=== PATIENT | male | born 1970 | race African-American/Black ===

== ENCOUNTER 2020-01-07 08:01 | Inpatient (IN) | payer OTHER ==
[~2020-01-07] VITALS: Ht 149.9 cm; Wt 55.3 kg
--- NOTE | ~2020-01-07 | EMS ---
[address] [address] EMS Patient Care Report Name: SANDIE GOMEZ Room #: REG JULIEN Corbett#: [id number] Admission: 01/07/20 Attend Phys: Discharge: Date of : 70 Report #: [id number] THIS REPORT FOR: //name// Report Transmitted: 01/07/2020 08:49 EMS Care Summary [place], [place]/[facility] Incident [id number] @ 01/07/2020 07:25 Incident Location [address] [place], [place] [address]A Patient SANDIE GOMEZ Male, 49 Years 1970 Patient Address [address] [place] [id number] Patient History Gastro-Esophageal Reflux Disease (GERD),Depression,Paraplegia,Colostomy, Patient Allergies No known allergies, Patient Medications Protonix, Oxybutynin, Tylenol, Aspirin, [place], Loperamide, Ascorbic Acid, Chief Complaint FEVER, REFUED WOUND CARE YESTERDAY Disposition Transported No Lights/[place] Dispatch Reason Sick Person Transported To [facility] Narrative PT FOUND LYING IN BED. STAFF STATES THAT PT REFUSED WOUND CARE FOR HIS STAGE 4 WOUNDS YESTERDAY AND THAT THIS AM HE IS RUNNING A TEMP OF 101. LEVEL 1 MASK PLACED ON PT. PT TRANSPORTED WITHOUT INCIDENT. [address] [address] EMS Patient Care Report Name: SANDIE GOMEZ Room #: REG ER Chelle#: [id number] Admission: 01/07/20 Attend Phys: Discharge: Date of : 70 Report #: [id number] Initial Vitals @07:45P: 116,R: 18,BP: 112/72,Pain: 0/10,GCS: 15,SpO2: 97,Revised Trauma: 12, Assessments @07:35MENTAL:No Abnormalities,SKIN:Hot,HEENT:Head/Face: No Abnormalities,Eyes: No Abnormalities,Neck/Airway: No Abnormalities,LUNG SOUNDS:ABDOMEN:PELVIS//GI:EXTREMITIES:PULSE:NEURO:No Abnormalities, Impression Fever Procedures @07:35ALS AssessmentResponse: UnchangedSucceeded Timeline 07:22,Call Received 07:22,Dispatch Notified 07:25,Dispatched 07:29,En Route 07:33,On Scene 07:35,At Patient 07:35,ALS Assessment,Response: UnchangedSucceeded, 07:45,BP: 112/72 M,PULSE: 116,RR: 18 R,SPO2: 97 Ox,ETCO2: ,BG: ,PAIN: 0,GCS: 15, 07:46,Depart Scene 07:57,At Destination 08:22,Call Closed Disclaimer v1.1 Copyright 2020 [employer] This EMS Care Summary contains data elements from the applicable legal record (which may be displayed differently). It is designed to provide pertinent information for the following purposes: continuity of care, clinical quality, and state data reporting. The complete legal record is available to ED staff and administrators of the receiving hospital in [employer]'s Patient Tracker. All data is provided "as is."
--- NOTE | ~2020-01-07 | EMS ---
[address] [address] EMS Patient Care Report Name: SANDIE GOMEZ Room #: REG JULIEN Corbett#: [id number] Admission: 01/07/20 Attend Phys: Discharge: Date of : 70 Report #: [id number] THIS REPORT FOR: //name// Report Transmitted: 01/07/2020 09:30 EMS Care Summary [place], [place]/[facility] Incident [id number] @ 01/07/2020 07:25 Incident Location [address] [place], [place] [address] Patient SANDIE GOMEZ Male, 49 Years 1970 Patient Address [address] [place] [address] Patient History Gastro-Esophageal Reflux Disease (GERD),Depression,Paraplegia,Colostomy, Patient Allergies No known allergies, Patient Medications Protonix, Oxybutynin, Tylenol, Aspirin, [place], Loperamide, Ascorbic Acid, Chief Complaint FEVER, REFUED WOUND CARE YESTERDAY Disposition Transported No Lights/[place] Dispatch Reason Sick Person Transported To [facility] Narrative PT FOUND LYING IN BED. STAFF STATES THAT PT REFUSED WOUND CARE FOR HIS STAGE 4 WOUNDS YESTERDAY AND THAT THIS AM HE IS RUNNING A TEMP OF 101. LEVEL 1 MASK PLACED ON PT. PT TRANSPORTED WITHOUT INCIDENT. [address] [address] EMS Patient Care Report Name: SANDIE GOMEZ Room #: REG ER Chelle#: [id number] Admission: 01/07/20 Attend Phys: Discharge: Date of : 70 Report #: [id number] Initial Vitals @07:45P: 116,R: 18,BP: 112/72,Pain: 0/10,GCS: 15,SpO2: 97,Revised Trauma: 12, Assessments @07:35MENTAL:No Abnormalities,SKIN:Hot,HEENT:Head/Face: No Abnormalities,Eyes: No Abnormalities,Neck/Airway: No Abnormalities,LUNG SOUNDS:ABDOMEN:PELVIS//GI:EXTREMITIES:PULSE:NEURO:No Abnormalities, Impression Fever Procedures @07:35ALS AssessmentResponse: UnchangedSucceeded Timeline 07:22,Call Received 07:22,Dispatch Notified 07:25,Dispatched 07:29,En Route 07:33,On Scene 07:35,At Patient 07:35,ALS Assessment,Response: UnchangedSucceeded, 07:45,BP: 112/72 M,PULSE: 116,RR: 18 R,SPO2: 97 Ox,ETCO2: ,BG: ,PAIN: 0,GCS: 15, 07:46,Depart Scene 07:57,At Destination 08:22,Call Closed Disclaimer v1.1 Copyright 2020 [employer] This EMS Care Summary contains data elements from the applicable legal record (which may be displayed differently). It is designed to provide pertinent information for the following purposes: continuity of care, clinical quality, and state data reporting. The complete legal record is available to ED staff and administrators of the receiving hospital in [employer]'s Patient Tracker. All data is provided "as is."
[~2020-01-07 08:01] MED LIST: AMOXICILLIN 50500 MG PO; BACTRIM DS TAB1 EACH PO; BETADINE1 EACH TOP; CARDIZEM30 MG PO; GAS RELIEF80 MG PO; JUVEN PACKET1 EACH PO; NOHOMEMEDICATIONS; PEPCID20 MG PO; PIPERACIL-TA3.375 GM IVPB; PROSTAT; TYLENOL325 MG PO; VITAMINC500 PO; ZINC10 MG PO
[2020-01-07 08:02] VITALS: BP 106/71
[2020-01-07] MEDS ORDERED: ASA81BEC PO (09:02)
[2020-01-07] MEDS ORDERED: LORCET 5-325 M1 EACH PO (09:02)
[2020-01-07] MEDS ORDERED: LOPERAMIDE2 MG PO (09:03)
[2020-01-07] MEDS ORDERED: SUPER THERAVIT1 EACH PO (09:03)
[2020-01-07] MEDS ORDERED: PROTONIX40 M3 PO (09:04)
[2020-01-07] MEDS ORDERED: OXYBUTYNIN CHLO15 MG PO (09:04)
[2020-01-07] MEDS ORDERED: TYLENOL325 MG PO (09:04)
[2020-01-07 09:11] LABS: CALCIUM 9.4 mg/dL (8.5-10.1); CREATININE 1.2 mg/dL (0.7-1.3); POTASSIUM 3.4 mmol/L (3.5-5.1)
[2020-01-07 09:17] LABS: ALBUMIN 2.1 g/dL (3.4-5.0); TOTAL BILIRUBIN 0.4 mg/dL (<0.1-1.0); TOTAL PROTEIN 9.3 g/dL (6.4-8.2)
[2020-01-07 09:50] LABS: ABSOLUTE NEUTROPHILS 15.9 thou/uL (1.4-8.2); BASOPHILS 0.4 % (0.0-2.0); EOSINOPHILS 0.5 % (0.0-3.0); HEMATOCRIT 26.7 % (42.0-52.0); HEMOGLOBIN 8.4 gm/dL (14.0-18.0); LYMPHOCYTES 9.1 % (24.0-44.0); MCH 22.2 pg (26.0-34.0); MCHC 31.3 g/dL (28.0-37.0); MCV 71.1 fL (80.0-100.0); MONOCYTES 8.7 % (1.0-8.0); PLATELET COUNT 477 thou/uL (150-400); POLYS 81.3 % (36.0-66.0); RBC 3.76 mil/uL (4.50-6.00); RDW 19.6 % (10.5-14.5); WBC 19.5 thou/uL (4.0-11.0)
[2020-01-07 10:33] VITALS: BP 108/84
[2020-01-07 11:04] VITALS: BP 92/64
[2020-01-07 11:23] LABS: ANISOCYTOSIS 1+; MICROCYTES 1+; PLATELET ESTIMATE NORMAL
[2020-01-07 11:54] VITALS: BP 95/68
[2020-01-07 16:16] VITALS: BP 99/68
[2020-01-07 19:13] VITALS: BP 94/64
[2020-01-08 03:59] VITALS: BP 97/67
[2020-01-08 06:19] LABS: CALCIUM 8.5 mg/dL (8.5-10.1); CREATININE 1.3 mg/dL (0.7-1.3); MAGNESIUM 1.6 mg/dL (1.8-2.4); POTASSIUM 3.8 mmol/L (3.5-5.1)
[2020-01-08 06:23] LABS: ABSOLUTE NEUTROPHILS 10.1 thou/uL (1.4-8.2); BASOPHILS 0.5 % (0.0-2.0); EOSINOPHILS 2.6 % (0.0-3.0); HEMOGLOBIN 7.7 gm/dL (14.0-18.0); LYMPHOCYTES 12.1 % (24.0-44.0); MCH 22.1 pg (26.0-34.0); MCHC 30.7 g/dL (28.0-37.0); MCV 71.9 fL (80.0-100.0); PLATELET COUNT 442 thou/uL (150-400); POLYS 75.8 % (36.0-66.0); RBC 3.47 mil/uL (4.50-6.00); RDW 19.6 % (10.5-14.5); WBC 13.3 thou/uL (4.0-11.0)
[2020-01-08 08:00] VITALS: BP 92/60
[2020-01-08 16:47] VITALS: BP 83/58
[2020-01-08 19:21] VITALS: BP 78/49
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
[2020-01-08 22:00] VITALS: BP 84/50
[2020-01-09 04:19] VITALS: BP 87/61
[2020-01-09 05:30] LABS: WBC 8.7 thou/uL (4.0-11.0)
[2020-01-09 05:33] LABS: HEMATOCRIT 20.5 % (42.0-52.0); MCH 23.1 pg (26.0-34.0); MCHC 31.4 g/dL (28.0-37.0); MCV 73.6 fL (80.0-100.0); RBC 2.79 mil/uL (4.50-6.00); RDW 19.2 % (10.5-14.5)
[2020-01-09 05:45] LABS: CALCIUM 6.9 mg/dL (8.5-10.1); CREATININE 1.1 mg/dL (0.7-1.3); POTASSIUM 3.9 mmol/L (3.5-5.1)
[2020-01-09 05:51] LABS: HEMOGLOBIN 6.4 gm/dL (14.0-18.0)
[2020-01-09 07:54] VITALS: BP 92/63
[2020-01-09 17:13] VITALS: BP 90/60
[2020-01-09 19:30] VITALS: BP 89/61
[2020-01-10 04:00] VITALS: BP 93/61
[2020-01-10 07:50] VITALS: BP 100/71
[2020-01-10 08:13] LABS: HEMATOCRIT 27.6 % (42.0-52.0)
[2020-01-10 08:14] LABS: HEMOGLOBIN 8.7 gm/dL (14.0-18.0)
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
[2020-01-10 15:45] VITALS: BP 100/71
--- NOTE | 2020-01-10 16:07 | PATH ---
[facility] [address] [place] [address] PATHOLOGY RPT PROCEDURE Name: PACHECO GOMEZ Room #: 443-P ADM IN M.R.#: [id number] Admission: 01/07/20 Date of : 70 Discharge: Report #: [id number] Path Case #: [id number] [facility] Accession Number: [id number] . 01 Material submitted: . coccyx - COCCYX BONE . 01 Clinical history: . Decubitus ulcers . 02 Diagnosis: Coccyx bone, debridement: - Bone with marked acute inflammation, consistent with the provided history of debridement and decubitus ulcer. (IUV:pit 01/10/2020) QTP 01/10/2020 1326 Local . 02 Electronically signed: . Rashmi Mcleod MD, Pathologist NPI- [id number] . 01 Gross description: . The specimen is received fresh, labeled "Pacheco Yg, coccyx bone, histology". Received are two segments of light mcneill bone measuring 1.2 x 1.0 x 0.6 cm in aggregate dimensions. A portion of the specimen is submitted in cassette A1, following decalcification. The remainder of the specimen is retained within the specimen container for possible culture studies if requested. (CAA; 01/09/2020) QAC/QAC 01/09/2020 1700 Local . 02 Pathologist provided ICD-10: M86.10 . 02 CPT . 473318, [id number] Specimen Comment: A courtesy copy of this report has been sent to [phone] Specimen Comment: Report sent to Performed at: [address], [place], [place] [id number] MD Aaron Lafleur MD Phone: [phone] Performed at: [address], [place] [id number] MD Rashmi Mcleod MD Phone: [phone]
[2020-01-10 19:15] VITALS: BP 101/71
[2020-01-11 03:45] VITALS: BP 95/68
[2020-01-11 05:57] LABS: HEMOGLOBIN 8.8 gm/dL (14.0-18.0); MCH 23.5 pg (26.0-34.0); MCHC 31.5 g/dL (28.0-37.0); MCV 74.8 fL (80.0-100.0); RBC 3.74 mil/uL (4.50-6.00); RDW 20.4 % (10.5-14.5); WBC 11.3 thou/uL (4.0-11.0)
[2020-01-11 06:15] VITALS: BP 90/62
[2020-01-11 06:15] LABS: CALCIUM 8.3 mg/dL (8.5-10.1); CREATININE 1.2 mg/dL (0.7-1.3); POTASSIUM 4.1 mmol/L (3.5-5.1)
[2020-01-11 08:14] VITALS: BP 90/62
[2020-01-11 15:31] VITALS: BP 105/66
[2020-01-11 19:45] VITALS: BP 90/60
[2020-01-12 04:30] VITALS: BP 93/64
[2020-01-12 07:46] VITALS: BP 89/60
[2020-01-12 14:15] VITALS: BP 89/60
[2020-01-12 15:41] VITALS: BP 97/64
[2020-01-12 19:30] VITALS: BP 105/80
[2020-01-13 04:45] VITALS: BP 95/62
[2020-01-13 07:56] VITALS: BP 96/61
[2020-01-13 12:24] VITALS: BP 96/61
[2020-01-13] MEDS ORDERED: LINEZOLID600 MG PO (14:50)
[2020-01-13] MEDS ORDERED: CEFTRIAXON1 GM/50 M1 IVPB (14:51)
[2020-01-13] MEDS ORDERED: FLAGYL500 M1 PO (14:52)
[2020-01-13 17:03] VITALS: BP 92/68
== END 2020-01-13 18:40 | DRG 853 ==
LOC: ER 08:01 → EROBS 10:44 → 4S 10:44
PROVIDERS: Emergency Medicine; Nurse Practitioner; ADMIT Hospitalist
PROC: 30233N1 Transfusion of Nonautologous Red Blood Cells into Peripheral Vein, Percutaneous Approach (ICD-10-PCS; principal; 2020-01-09)
PROC: 0JB70ZZ Excision of Back Subcutaneous Tissue and Fascia, Open Approach (ICD-10-PCS; principal; 2020-01-09)
DX: A41.9 Sepsis, unspecified organism (principal); L89.154 Pressure ulcer of sacral region, stage 4; L89.324 Pressure ulcer of left buttock, stage 4; L89.314 Pressure ulcer of right buttock, stage 4; E43 Unspecified severe protein-calorie malnutrition; E87.1 Hypo-osmolality and hyponatremia; G82.20 Paraplegia, unspecified; M86.8X8 Other osteomyelitis, other site; D64.9 Anemia, unspecified; N31.9 Neuromuscular dysfunction of bladder, unspecified; E87.6 Hypokalemia; F17.210 Nicotine dependence, cigarettes, uncomplicated; Z93.3 Colostomy status; Z86.14 Personal history of Methicillin resistant Staphylococcus aureus infection; Z89.512 Acquired absence of left leg below knee; Z89.511 Acquired absence of right leg below knee
CPT/HCPCS: 10102; 50010; 50101; 50366; 50386; 50403; 50643; 50970; 53078; 57119; 57120; 62110; 62900; 70005

== ENCOUNTER → 2020-03-03 | Outpatient (CLI) | payer OTHER ==
[~2020-03-03] MED LIST changes: +ASA81BEC PO; +CEFTRIAXON1 GM/50 M1 IVPB; +FLAGYL500 M1 PO; +LINEZOLID600 MG PO; +LOPERAMIDE2 MG PO; +LORCET 5-325 M1 EACH PO; +OXYBUTYNIN CHLO15 MG PO; +PROTONIX40 M3 PO; +SUPER THERAVIT1 EACH PO
== END ==
LOC: HYPER 12:49
DX: T87.89 Other complications of amputation stump (principal); L89.154 Pressure ulcer of sacral region, stage 4; L89.324 Pressure ulcer of left buttock, stage 4; L89.314 Pressure ulcer of right buttock, stage 4; L89.893 Pressure ulcer of other site, stage 3; M46.28 Osteomyelitis of vertebra, sacral and sacrococcygeal region; G82.20 Paraplegia, unspecified; F17.200 Nicotine dependence, unspecified, uncomplicated; Z79.82 Long term (current) use of aspirin; Z90.5 Acquired absence of kidney; Z86.14 Personal history of Methicillin resistant Staphylococcus aureus infection; Z93.3 Colostomy status; Y83.5 Amputation of limb(s) as the cause of abnormal reaction of the patient, or of later complication, without mention of misadventure at the time of the procedure

== ENCOUNTER → 2020-03-23 | Outpatient (CLI) | payer OTHER | LOC: HYPER 11:00 | DX: T87.81 Dehiscence of amputation stump (principal); L89.154 Pressure ulcer of sacral region, stage 4; L89.324 Pressure ulcer of left buttock, stage 4; L89.314 Pressure ulcer of right buttock, stage 4; L89.893 Pressure ulcer of other site, stage 3; L97.822 Non-pressure chronic ulcer of other part of left lower leg with fat layer exposed; G82.20 Paraplegia, unspecified; M46.28 Osteomyelitis of vertebra, sacral and sacrococcygeal region; M62.81 Muscle weakness (generalized); F33.9 Major depressive disorder, recurrent, unspecified; F17.200 Nicotine dependence, unspecified, uncomplicated; Z89.511 Acquired absence of right leg below knee; Z89.512 Acquired absence of left leg below knee; Z93.3 Colostomy status; Y83.5 Amputation of limb(s) as the cause of abnormal reaction of the patient, or of later complication, without mention of misadventure at the time of the procedure ==

== ENCOUNTER → 2020-04-08 | Outpatient (CLI) | payer OTHER | LOC: HYPER 13:00 | PROVIDERS: ATTEND Emergency Medicine Emergency Medical Services | DX: T87.81 Dehiscence of amputation stump (principal); L89.154 Pressure ulcer of sacral region, stage 4; L89.324 Pressure ulcer of left buttock, stage 4; L89.314 Pressure ulcer of right buttock, stage 4; L89.893 Pressure ulcer of other site, stage 3; L97.822 Non-pressure chronic ulcer of other part of left lower leg with fat layer exposed; M46.28 Osteomyelitis of vertebra, sacral and sacrococcygeal region; M62.81 Muscle weakness (generalized); G82.20 Paraplegia, unspecified; F33.9 Major depressive disorder, recurrent, unspecified; F17.200 Nicotine dependence, unspecified, uncomplicated; Z86.14 Personal history of Methicillin resistant Staphylococcus aureus infection; Z93.3 Colostomy status; Z89.512 Acquired absence of left leg below knee; Z79.82 Long term (current) use of aspirin; Y83.5 Amputation of limb(s) as the cause of abnormal reaction of the patient, or of later complication, without mention of misadventure at the time of the procedure ==

== ENCOUNTER → 2020-04-22 | Outpatient (CLI) | payer OTHER | LOC: HYPER 10:51 | PROVIDERS: ATTEND Emergency Medicine Emergency Medical Services | DX: T87.81 Dehiscence of amputation stump (principal); L89.154 Pressure ulcer of sacral region, stage 4; L89.324 Pressure ulcer of left buttock, stage 4; L89.314 Pressure ulcer of right buttock, stage 4; L89.893 Pressure ulcer of other site, stage 3; L97.822 Non-pressure chronic ulcer of other part of left lower leg with fat layer exposed; G82.20 Paraplegia, unspecified; M46.28 Osteomyelitis of vertebra, sacral and sacrococcygeal region; M62.81 Muscle weakness (generalized); F33.9 Major depressive disorder, recurrent, unspecified; F17.200 Nicotine dependence, unspecified, uncomplicated; Z93.3 Colostomy status; Y83.5 Amputation of limb(s) as the cause of abnormal reaction of the patient, or of later complication, without mention of misadventure at the time of the procedure ==